=== PATIENT | male | born 1985 | race Caucasian/White ===

== ENCOUNTER 2017-01-30 12:35 | Inpatient (IN) | payer OTHER ==
[~2017-01-30] VITALS: Ht 177.8 cm; Wt 68.0 kg
[2017-01-30 12:36] VITALS: BP 116/69
--- NOTE | 2017-01-30 12:44 | NUR ---
31/M raffi from an urgent care, accompanied by Yuliya CONDON. Per EMS, patient walked into urgent care and told the staff that he wanted to kill himself. Pt arrived to ED calm and cooperative. Pt placed on a 5150 hold by Yuliya CONDON for suicidal ideation. Pt states he has a plan to walk in front of car. Pt states having previous suicidal attempts like walking into traffic. Pt also c/o chest pain. Pt states "My heart feels like it's breaking." Pt states he was involved in an argument today with his girlfriend that triggered him. Patient is AOX4, clear speech. Calm and cooperative. Denies homicidal tendencies. Pt admits to being on a 5150 in the past. All clothing removed and placed into a gown. All belongings placed in a belongings bag, and set aside to have security inspect them. Non slip socks provided. Pt placed on youth nutritional monitor, pulse oximetry and blood pressure monitoring. VSS. All needs addressed. Pt verbalizes understanding of situation. All questions answered. Security called to bedside for belongings inspection.
--- NOTE | 2017-01-30 12:52 | NUR ---
Lab at bedside for blood draw and security at bedside inspecting patient's belongings.
[2017-01-30 12:57] LABS: HEMATOCRIT 45.2 % (36-52); HEMOGLOBIN 15.1 g/dL (12.0-18.0); MEAN CORPUSCULAR HEMOGLOBIN 28 pg (27-31); MEAN CORPUSCULAR HGB CONC 33 g/dL (33-37); MEAN CORPUSCULAR VOLUME 83 fL (80-94); PLATELET COUNT (AUTO) 441 K/uL (140-450); RED BLOOD CELL COUNT(AUTO) 5.45 MIL/uL (4.20-6.10); RED CELL DISTRIBUTION WIDTH 13.6 % (11.6-13.7); WHITE BLOOD COUNT (AUTO) 13.8 K/uL (4.8-10.8)
--- NOTE | 2017-01-30 13:03 | NUR ---
UA collected and sent to lab. Warm blanket provided. Lunch offered. Pt states "I'll wait." All needs addressed.
[2017-01-30 13:13] LABS: ALANINE AMINOTRANSFERASE 24 U/L (16-63); ALBUMIN 4.2 g/dL (3.4-5.0); ALKALINE PHOSPHATASE 77 U/L (46-116); ANION GAP 17.3 (8-16); ASPARTATE AMINOTRANSFERASE 28 U/L (15-37); BAND % (MANUAL) 5 % (0-8); CALCIUM 8.3 mg/dL (8.5-10.1); CARBON DIOXIDE 23.1 mmol/L (21-32); CHLORIDE 91 mmol/L (98-107); CREATININE 1.5 mg/dL (0.7-1.3); GFR ARICAN-AMERICAN 70 mL/min (>90); GFR NON ARICAN-AMERICAN 58 mL/min (>90); GLUCOSE 89 mg/dL (74-106); LYMPHOCYTES % (MANUAL) 17 % (20-46); MONOCYTES % (MANUAL) 5 % (5-12); NEUTROPHILS % (MANUAL) 73 (43-65); PLATELET ESTIMATE ADEQUATE; SODIUM SERUM 129 mmol/L (136-145); TOTAL BILIRUBIN 2.1 mg/dL (0.0-1.0); TOTAL PROTEIN, SERUM 7.1 g/dL (6.4-8.2); UREA NITROGEN, BLOOD 21 mg/dL (7-18)
[2017-01-30 13:15] LABS: ACETAMINOPHEN < 0.5 ug/ml (10-30); ALCOHOL, BLOOD < 3 mg/dL (<3); POTASSIUM 2.4 mmol/L (3.5-5.1); SALICYLATE < 2.8 mg/dL (2.8-20.0)
[2017-01-30] MEDS ORDERED: POTASSIUM CHLORIDE 10 MEQ TABER PO ONE (13:25)
[2017-01-30 13:40] LABS: APPEARANCE,URINE HAZY (CLEAR); BILIRUBIN,URINE 2+ (NEGATIVE); BLOOD, URINE NEGATIVE (NEGATIVE); COLOR,URINE YELLOW (YELLOW); LEUKOCYTE ESTERASE ,URINE NEGATIVE (NEGATIVE); NITRITE, URINE NEGATIVE (NEGATIVE); PROTEIN,URINE 1+ (NEGATIVE); UGLUCOSE NEGATIVE (NEGATIVE)
--- NOTE | 2017-01-30 13:48 | NUR ---
Patient being evaluated by Dr. Fonseca at bedside.
[2017-01-30 13:49] LABS: AMPHETAMINE, URINE POS. ng/ml (NEG <=1000); BARBITURATE, URINE NEG. ng/ml (NEG <=200); BENZODIAZEPINE, URINE NEG. ng/mL (NEG <=200); CANNABINOID, URINE POS. ng/mL (NEG <=50); COCAINE, URINE NEG. ng/mL (NEG <=300); OPIATE, URINE NEG. ng/mL (NEG <=2000); PHENCYCLIDINE SCREEN,URINE NEG. ng/mL (NEG <=25)
[2017-01-30 14:00] LABS: RBC,URINE NONE SEEN /HPF (0-5); WBC,URINE 0-5 (RARE) /HPF (0-5)
[2017-01-30 14:01] LABS: BACTERIA,URINE FEW /HPF (None Seen); SQUAMOUS EPITHELIAL CELL,UR None Seen /LPF (0-3 (FEW)); URINE AMORPHOUS URATE 2+ /HPF (None Seen)
--- NOTE | 2017-01-30 14:04 | NUR ---
Pt resting comfortably at this time. Calm and cooperative. VSS. EMT at bedside as sitter.
--- NOTE | 2017-01-30 14:45 | NUR ---
Food tray provided to bedside. Pt is resting comfortably at this time. Crystal from [facility] at bedside as a sitter. Pt is calm and relaxed. VSS.
--- NOTE | 2017-01-30 15:46 | NUR ---
Patient appears to be resting comfortably in bed. Sitter at bedside. VSS. No distress noted.
[2017-01-30] MEDS ORDERED: ONDANSETRON 4 MG/2 ML VIAL IVP PRN (15:50)
[2017-01-30] MEDS ORDERED: ACETAMINOPHEN 325 MG TAB PO PRN (15:50)
[2017-01-30] MEDS ORDERED: LORazepam 2 MG/ML VIAL IVP PRN (15:50)
[2017-01-30 16:00] VITALS: BP 117/57
--- NOTE | 2017-01-30 16:00 | NUR ---
RECEIVED PT ON UNIT VIA [employer], PT IS A/OX4, AMBULATORY, PT HAS RIGHT HAND ABRASION, IV IS ON THE LEFT AC, PATENT, INTACT, FLUSHING WELL, NO S/S OF RESPIRATORY DISTRESS OR DISCOMFORT NOTED, ORIENTED PT TO ROOM, DISCUSSED PLAN OF CARE WITH PT, PT VERBALIZED UNDERSTANDING, SAFETY/FALL PRECAUTIONS ARE IN PLACE, 1:1 SITTER IS AT BEDSIDE (COLT), CALL LIGHT WITHIN REACH WILL CONTINUE TO MONITOR.
--- NOTE | 2017-01-30 16:00 | NUR ---
Patient eating lunch at this time. Sitter at bedside.
--- NOTE | 2017-01-30 16:03 | NUR ---
No nurse available for report at this time.
--- NOTE | 2017-01-30 16:12 | NUR ---
Patient will be admitted to care of Dr. Martins. Admited to M/S. Will go to room 124-B. Belongings list completed. Report to Malia PANG.
--- NOTE | 2017-01-30 18:27 | NUR ---
PT IS RESTING IN BED, WATCHING TV, CALL LIGHT WITHIN REACH, 1:1SITTER AT BEDSIDE.
--- NOTE | 2017-01-30 19:30 | NUR ---
PT ENDORSED TO BIRD KNIGHT. FOR CONTINUITY OF CARE, PT STABLE AT THIS TIME, 1:1 SITTER IS AT BEDSIDE (COLT).
--- NOTE | 2017-01-30 19:31 | NUR ---
RECEIVED REPORT FROM AM NURSE. PT SEEN ON BED WATCHING TV, AOX4. AMBULATORY. IV ON THE L AC 20 G, SALINE LOCK, PATENT AND INTACT. NO S/S OF DISTRESS. NO COMPLAINTS OF PAIN. DISCUSSED PLAN OF CARE WITH PATIENT, VERBALIZED UNDERSTANDING. WITH AN 1:1 SITTER. SAFETY PRECAUTIONS IN PLACE. CALL LIGHT WITHIN REACH. WILL CONTINUE TO MONITOR.
--- NOTE | 2017-01-30 19:35 | NUR ---
RECEIVED PT IN STABLE CONDITION FROM AM NURSE. AWAKE,ALERT AND ORIENTED X4. MED SURG PT. WITH 1:1 SITTER DUE TO SUICIDAL IDEATION. HL ON THE LT AC #20. CLEAR AND PATENT. PLAN OF CARE DISCUSSED AND VERBALIZED UNDERSTANDING. BED ON LOW POSITION,CALL LIGHT PLACED WITHIN EASY REACH. WILL CONTINUE TO MONITOR PT FOR SAFETY DURING THE SHIFT.
--- NOTE | 2017-01-30 20:10 | NUR ---
DR. GOTTLIEB HERE AND SEEN PT. HE SAID CAN DISCONTINUE 1:1 SITTER FOR PT DOESN'T MEET 5150 CRITERIA.
--- NOTE | 2017-01-30 21:00 | NUR ---
PT AWAKE. HAD SOME CRACKERS AND JUICE. TOLERATED WELL.
--- NOTE | 2017-01-30 22:16 | NUR ---
PAGED DR. GALDAMEZ TO MAKE AWARE ABOUT DR. GOTTLIEB ALREADY SEEN AND SAID PT DOESN'T MEET THE CRITERIA FOR 5150 HOLD AND TO DISCONTINUE THE 1:[address] CHASE OPERATOR VACUUM , CALLED BACK AND MADE AWARE OF WHAT DR. GOTTLIEB SAID AND SHE SAID OK AND JUST HAVE DR. GALDAMEZ MADE AWARE ALSO IN AM.
[2017-01-31] VITALS: BP 102/63
--- NOTE | 2017-01-31 00:10 | NUR ---
AWAKE. C/O HEADACHE. VITAL SIGNS TAKEN AND STABLE. TYLENOL 650 PO GIVEN ORDERED.
--- NOTE | 2017-01-31 01:10 | NUR ---
MADE ROUNDS. PT IS ASLEEP. NO MORE S/S OF ANY PAIN NOTED.
--- NOTE | 2017-01-31 03:04 | NUR ---
SAW PT SLEEPING. NO S/S OF DISTRESS. WILL CONTINUE TO MONITOR. CALL LIGHT WITHIN REACH. SAFETY CHECKS IN PLACE.
[2017-01-31 06:04] LABS: HEMATOCRIT 43.7 % (36-52); HEMOGLOBIN 14.6 g/dL (12.0-18.0); MEAN CORPUSCULAR HEMOGLOBIN 28 pg (27-31); MEAN CORPUSCULAR HGB CONC 33 g/dL (33-37); MEAN CORPUSCULAR VOLUME 84 fL (80-94); PLATELET COUNT (AUTO) 373 K/uL (140-450); RED BLOOD CELL COUNT(AUTO) 5.19 MIL/uL (4.20-6.10); RED CELL DISTRIBUTION WIDTH 13.5 % (11.6-13.7)
[2017-01-31 06:16] LABS: WHITE BLOOD COUNT (AUTO) 6.7 K/uL (4.8-10.8)
[2017-01-31 06:44] LABS: ALBUMIN 3.7 g/dL (3.4-5.0); ANION GAP 12.4 (8-16); CALCIUM 8.5 mg/dL (8.5-10.1); CARBON DIOXIDE 30.2 mmol/L (21-32); CREATININE 1.1 mg/dL (0.7-1.3); TOTAL BILIRUBIN 1.9 mg/dL (0.0-1.0); TOTAL PROTEIN, SERUM 6.5 g/dL (6.4-8.2)
[2017-01-31 06:46] LABS: POTASSIUM 2.6 mmol/L (3.5-5.1)
--- NOTE | 2017-01-31 07:15 | NUR ---
ENDORSED TO AM SHIFT NURSE FOR CONTINUITY OF CARE. IN STABLE CONDITION.
--- NOTE | 2017-01-31 07:19 | NUR ---
DR. GALDAMEZ WAS PAGED X2 . THIS TIME CALLED BACK AND MADE HAGER ABOUT K LEVEL OF 2.6 AND GAVE ORDER. ENDORSED TO AM NURSE.
--- NOTE | 2017-01-31 07:25 | NUR ---
REPORT RECEIVED FROM TELEVISION SPECIALIST, PT RESTING WITH EYES CLOSED, RESP EVEN UNLABORED ON ROOM AIR IN NAD, SKIN WARM DRY COLOR WNL, PT AROUSES EASILY BY VOICE, DENIES PAIN OR DISCOMFORT, DENIES ANY IMMEDIATE NEEDS, PLAN OF CARE DISCUSSED, CALL DORSEY WITHIN REACH, SIDE RAILS UP, BED LOCKED IN LOW POSITION, WILL CONTINUE TO MONITOR.
[2017-01-31 07:32] LABS: BASOPHILS % (MANUAL) 1 % (0-2); EOSINOPHILS % (MANUAL) 4 % (0-4); LYMPHOCYTES % (MANUAL) 58 % (20-46); MONOCYTES % (MANUAL) 3 % (5-12); NEUTROPHILS % (MANUAL) 34 (43-65)
[2017-01-31 08:04] VITALS: BP 121/55
[2017-01-31] MEDS: POTASSIUM CHLORIDE 10 MEQ TABER PO SCH ×2 (08:19→12:04)
--- NOTE | 2017-01-31 09:05 | NUR ---
PT C/O MCWILLIAMS 04/30, OFFERED TYLENOL BUT REFUSES, PT REQUESTS "SOMETHING STRONGER FOR PAIN", DR GALDAMEZ NOTIFIED OF PT'S REQUEST, NO NEW ORDER RECEIVED, PT STILL REFUSES TYLENOL. PT RETURNED BACK TO SLEEP , RESP EVEN UNLABORED, APPEARS COMFORTABLE IN NAD. WILL CONTINUE TO MONITOR.
--- NOTE | 2017-01-31 09:22 | NUR ---
PATIENT HAS BEEN SCREENED AND CATEGORIZED LOW NUTRITION RISK. PATIENT WILL BE SEEN WITHIN 7 DAYS OF ADMISSION. 02/06/[address]
--- NOTE | 2017-01-31 10:45 | NUR ---
CM NOTE INITIAL REVIEW FAXED TO [facility] / FAX#[phone], ATTN: PAT #[phone] [id number]
--- NOTE | 2017-01-31 11:40 | NUR ---
SPOKE WITH PATIENT'S SISTER. INFORMED HER OF PT'S DISCHARGE. SHE STATES THE MOM AND UNCLE WOULD BE COMING TO SOCIAL STUDIES TEACHER SON.
--- NOTE | 2017-01-31 12:44 | NUR ---
pt sitting up eating lunch, PT AA SPEAKING CLEARLY IN GOOD MOOD, DENIES PAIN OR DISCOMFORT, AWAITING FAMILY FOR DC HOME, PT AWARE OF PLAN. IV DC'D CATH TIP INTACT, BLEEDING CONTROLLED, PT DIPTI WELL.
[2017-01-31 14:30] VITALS: BP 128/72
--- NOTE | 2017-01-31 14:30 | NUR ---
CALLED MOTHER ON THE PHONE, MOTHER TO SHANKER OUT PT IN 10-20MIN.
--- NOTE | 2017-01-31 14:51 | NUR ---
DC INSTRUCTION GIVEN AND EXPLAINED TO MOTHER AND PT BY BIRD HEWITT, THEY VERBALIZED FULL UNDERSTANDING OF DC INSTRUCTION, PT UP WALKING WITH STEADY GAIT, DC HOME NOW WITH MOTHER.
== END 2017-01-31 14:50 | disposition home or self-care (01) | DRG 750 ==
LOC: MED 12:35 → MTU 15:51
PROVIDERS: ADMIT Hospitalist; ATTEND Hospitalist
DX: F20.9 Schizophrenia, unspecified (principal); R45.851 Suicidal ideations; F17.200 Nicotine dependence, unspecified, uncomplicated; Z88.6 Allergy status to analgesic agent
CPT/HCPCS: 36415; 80053; 80305; 81001; 85025; 87081; 99285; G0480; G0482

== ENCOUNTER 2017-03-03 10:55 | Inpatient (IN) | payer OTHER ==
[~2017-03-03] VITALS: Ht 175.3 cm; Wt 52.6 kg
[2017-03-03 11:07] VITALS: BP 113/55
--- NOTE | 2017-03-03 11:15 | NUR ---
Patient ambulated to bed 7. RN evaluating patient at bedside.
[2017-03-03] MEDS ORDERED: NACL 0.9% 1,000 ML IV ONE (11:19)
--- NOTE | 2017-03-03 11:20 | NUR ---
an pd weir by bedside
--- NOTE | 2017-03-03 11:20 | NUR ---
[place] PD evaluating patient at bedside.
--- NOTE | 2017-03-03 11:30 | NUR ---
PATIENT PLACE ON 5150 BY FILIBERTO CONDON DUE SUICIDIAL IDEATION; PATIENT STATES HE HAS HISTORY OF DEPRESSION AND HAS BEEN FEELING "DOWN AND OUT TO THE WORLD"; PATIENT DENIES ANY RECENT EVENT TO CAUSED HIM TO FEEL LIKE THIS; PATIENT STATES HE WANTS TO KILL HIMSELF BY STABBING HIMSELF IN THE NECK WITH A KNIFE; MOTHER OF PATIENT BY BEDSIDE; SECUTIRY BY BEDSIDE; BELONGINGS REMOVED AND PATIENT PLACED IN GOWN; PATIENT IS CALM AND WITHDRAWN; DENIES N/V/D; SKIN IS PINK/WARM/DRY; AAOX4 WITH EVEN AND STEADY GAIT; LUNGS CLEAR BL; HR EVEN AND REGULAR; PT DENIES ANY FEVER, CP, SOB, OR COUGH AT THIS TIME; PATIENT STATES PAIN OF 0/10 AT THIS TIME; VSS; PATIENT POSITIONED FOR COMFORT; HOB ELEVATED; BEDRAILS UP X2; BED DOWN. ER MD MADE AWARE OF PT STATUS; SUICIDIAL PRECAUTIONS IN PLACE.
[2017-03-03 11:37] LABS: BASOPHILS # (AUTO) 0.3 K/uL (0.00-0.22); BASOPHILS % (AUTO) 4.8 % (0.0-2.0); EOSINOPHILS # (AUTO) 0.1 K/uL (0-0.4); EOSINOPHILS % (AUTO) 1.3 % (0.0-4.0); HEMOGLOBIN 16.1 g/dL (12.0-18.0); LYMPHOCYTES # (AUTO) 1.4 K/uL (2.0-11.5); LYMPHOCYTES % (AUTO) 26.4 % (20.5-51.1); MEAN CORPUSCULAR HEMOGLOBIN 28 pg (27-31); MEAN CORPUSCULAR HGB CONC 33 g/dL (33-37); MEAN CORPUSCULAR VOLUME 85 fL (80-94); MONOCYTES # (AUTO) 0.2 K/uL (0.8-1.0); MONOCYTES % (AUTO) 3.5 % (1.7-9.3); NEUTROPHILS # (AUTO) 3.4 K/uL (1.8-7.7); PLATELET COUNT (AUTO) 598 K/uL (140-450); RED BLOOD CELL COUNT(AUTO) 5.76 MIL/uL (4.20-6.10); RED CELL DISTRIBUTION WIDTH 14.5 % (11.6-13.7)
[2017-03-03 11:39] LABS: APPEARANCE,URINE SL CLOUDY (CLEAR); BILIRUBIN,URINE 1+ (NEGATIVE); BLOOD, URINE NEGATIVE (NEGATIVE); COLOR,URINE YELLOW (YELLOW); LEUKOCYTE ESTERASE ,URINE NEGATIVE (NEGATIVE); NITRITE, URINE NEGATIVE (NEGATIVE); PH,URINE 5.5 (5.0-9.0); PROTEIN,URINE NEGATIVE (NEGATIVE); UGLUCOSE NEGATIVE (NEGATIVE); UROBILINOGEN,URINE 0.2 EU/dL (0.2 - 1)
[2017-03-03 11:46] LABS: AMPHETAMINE, URINE POS. ng/ml (NEG <=1000); BARBITURATE, URINE NEG. ng/ml (NEG <=200); BENZODIAZEPINE, URINE NEG. ng/mL (NEG <=200); CANNABINOID, URINE NEG. ng/mL (NEG <=50); COCAINE, URINE NEG. ng/mL (NEG <=300); OPIATE, URINE NEG. ng/mL (NEG <=2000); PHENCYCLIDINE SCREEN,URINE NEG. ng/mL (NEG <=25)
[2017-03-03 11:51] LABS: INR 1.1 (0.8-1.2); PARTIAL THROMBOPLASTIN TIME 29.1 secs (22-35.6)
[2017-03-03 11:52] LABS: ICTOTEST POSITIVE (NEGATIVE)
[2017-03-03 11:53] LABS: ALANINE AMINOTRANSFERASE 25 U/L (16-63); ALBUMIN 4.7 g/dL (3.4-5.0); ALCOHOL, BLOOD < 3 mg/dL (<3); ALKALINE PHOSPHATASE 94 U/L (46-116); ANION GAP 10.8 (8-16); ASPARTATE AMINOTRANSFERASE 12 U/L (15-37); BILIRUBIN,DIRECT 0.3 mg/dL (0.0-0.3); CALCIUM 9.3 mg/dL (8.5-10.1); CARBON DIOXIDE 30.1 mmol/L (21-32); CHLORIDE 98 mmol/L (98-107); CREATININE 1.1 mg/dL (0.7-1.3); GFR ARICAN-AMERICAN 100 mL/min (>90); GFR NON ARICAN-AMERICAN 83 mL/min (>90); GLUCOSE 107 mg/dL (74-106); SODIUM SERUM 136 mmol/L (136-145); TOTAL BILIRUBIN 1.5 mg/dL (0.0-1.0); TOTAL PROTEIN, SERUM 7.8 g/dL (6.4-8.2); UREA NITROGEN, BLOOD 17 mg/dL (7-18)
[2017-03-03 11:54] LABS: POTASSIUM 2.9 mmol/L (3.5-5.1)
[2017-03-03 11:56] LABS: WHITE BLOOD COUNT (AUTO) 5.4 K/uL (4.8-10.8)
[2017-03-03] MEDS ORDERED: POTASSIUM CHL 40 MEQ/ D5-1/2NS 1,000 ML IV ONE (12:00)
--- NOTE | 2017-03-03 12:21 | NUR ---
Patient taken to CT scan via gurney by [place].
--- NOTE | 2017-03-03 12:48 | NUR ---
Patient appears to be resting comfortably in bed. Vital Signs within normal limits. Respirations even and unlabored. Suicidial precautions in place.
--- NOTE | 2017-03-03 13:30 | NUR ---
Patient appears to be resting comfortably in bed. Vital Signs within normal limits. Respirations even and unlabored; SUICIDIAL PRECAUTSION IN PLACE
--- NOTE | 2017-03-03 14:45 | NUR ---
Pt sitting up, eating lunch. Calm and cooperative.
[2017-03-03] MEDS ORDERED: LORazepam 2 MG/ML VIAL IVP PRN (14:55)
[2017-03-03] MEDS ORDERED: ACETAMINOPHEN 325 MG TAB PO PRN (14:55)
[2017-03-03] MEDS ORDERED: MORPHINE SULFATE 2 MG/ML SYR IVP PRN (14:55)
[2017-03-03] MEDS ORDERED: ONDANSETRON 4 MG/2 ML VIAL IVP PRN (14:55)
--- NOTE | 2017-03-03 14:59 | NUR ---
Dr. Joseph at bedside.
--- NOTE | 2017-03-03 15:05 | NUR ---
Notified Dr. Doty's group of requested psych consult.
--- NOTE | 2017-03-03 15:30 | NUR ---
Patient appears to be resting comfortably in bed and resting with eyes closed. Vital Signs within normal limits. Respirations even and unlabored. Suicidial precautions in place.
--- NOTE | 2017-03-03 16:01 | NUR ---
ATTEMPTED TO CALL FOR REPORT; MS HALL SAID RN WILL CALL BACK AND MS RN WITH PATIENT; ADMITTING ROOM ISN'T CLEAN
--- NOTE | 2017-03-03 16:30 | NUR ---
PATIENT RESTING WITH EYES CLOSED; IV MEDICATION INFUSING WITHOUT DIFFICULTLY; VSS; RR ARE EVEN AND UNLABORED; NAD; SUIDICIAL PRECAUTIONS IN PLACE
--- NOTE | 2017-03-03 16:34 | NUR ---
GAVE REPORT TO TRINY PANG; ROOM 123B IS NOT READY; ACCORDING TO MS HALL RM 123B WON'T BE READY UNTIL SHIFT CHANGE
--- NOTE | 2017-03-03 17:20 | NUR ---
PT KEPT CLEAN. DRY AND COMFORTABLE, NEEDS ATTENDED, ENDORSED TO NEXT SHIFT ON STABLE CONDITION FOR CONTINUITY OF CARE. Addendum: 03/03/17 at 1938 by Dilma Mehta RN PT KEPT CLEAN. DRY AND COMFORTABLE, NEEDS ATTENDED, ENDORSED TO NEXT SHIFT ON STABLE CONDITION FOR CONTINUITY OF CARE AT 1920.
--- NOTE | 2017-03-03 18:33 | NUR ---
RECEIVED PT FROM ER. AWAKE, ALERT, ORIENTEDX4. NO SOB NOTED. DENIES ANY PAIN OR DISCOMFORT AT THIS TIME. POSITIVE BOWEL SOUNDS NOTED ON FOUR QUADRANTS. PT AMBULATORY. SAFETY PRECAUTION IN PLACE. ON 5150, 1:1 SITTER. CALL LIGHT WITHIN REACH. NO SUICIDAL IDEATION NOTED AT THIS TIME.
[2017-03-03 18:36] VITALS: BP 98/57
--- NOTE | 2017-03-03 19:21 | NUR ---
RECEIVED REPORT FROM AM NURSE. PT IS AOX4, ABLE TO VERBALIZE NEEDS. NO S/S OF DISTRESS, NO COMPLAINTS OF PAIN AT THIS TIME. INITAL ASSESSMENT DONE. WITH AN IV TO THE RIGHT AC 20 G, WITH POTASSIUM CHLORIDE RUNNING, PATENT AND INTACT. IS ABLE TO AMBULATE. WILL CONTINUE TO MONITOR. WITH A 1:1 SITTER. ALL NEEDS ATTENDED. CALL LIGHT WITHIN REACH. SAFETY CHECKS IN PLACE.
--- NOTE | 2017-03-03 19:30 | NUR ---
DR MICHEL CAME TO SEE THE PATIENT AND STATED THAT THE PATIENT DOES NOT MEET THE 5150 CRITERIA AT THIS TIME. WITH ORDERS OF A SOCIAL SERVICE CONSULT FOR MENTAL HEALTH AND SUBSTANCE ABUSE TREATMENT. NOTED. ADMISSION DONE. WILL CONTINUE TO MONITOR FOR ANY CHANGES.
--- NOTE | 2017-03-03 21:10 | NUR ---
PT COMPLAINED OF RIGHT HAND PAIN, GAVE TYLENOL. WILL CONTINUE TO MONITOR FOR ANY CHANGES. ALL NEEDS ATTENDED. CALL LIGHT WITHIN REACH. SAFETY CHECKS IN PLACE.
[2017-03-04] VITALS: BP 95/56
--- NOTE | 2017-03-04 | NUR ---
VITAL SIGNS STABLE. NO S/S OF DISTRESS. NO COMPLAINTS OF PAIN. WILL CONTINUE TO MONITOR. CALL LIGHT WITHIN REACH. SAFETY CHECKS IN PLACE.
--- NOTE | 2017-03-04 02:23 | NUR ---
MADE ROUNDS, PT ASLEEP. NO S/S OF DISTRESS. CALL LIGHT WITHIN REACH. SAFETY CHECKS IN PLACE. WILL CONTINUE TO MONITOR.
--- NOTE | 2017-03-04 04:46 | NUR ---
MADE ROUNDS, PT ASLEEP. NO S/S OF DISTRESS. WILL CONTINUE TO MONITOR. ALL NEEDS ATTENDED. CALL LIGHT WITHIN REACH. SAFETY CHECKS IN PLACE.
--- NOTE | 2017-03-04 07:20 | NUR ---
ENDORSED TO AM SHIFT NURSE FOR CONTINUITY OF CARE, IN STABLE CONDITION.
--- NOTE | 2017-03-04 07:22 | NUR ---
REPORT RECEIVED FROM NIGHT NURSE, PT A&OX4, IV PATENT, NO COMPLAINTS OF PAIN, SAFETY MEASURES ENSURED, WILL MONITOR.
[2017-03-04 08:00] VITALS: BP 114/66
--- NOTE | 2017-03-04 08:09 | NUR ---
PATIENT HAS BEEN SCREENED AND CATEGORIZED HIGH NUTRITION RISK. PATIENT WILL BE SEEN WITHIN 1-2 DAYS OF ADMISSION. 03/04/17- NANY V[address]OS [address]
[2017-03-04] MEDS ORDERED: ENOXAPARIN 40 MG/0.4 ML SYR SUBQ SCH (09:00)
[2017-03-04 09:10] LABS: BASOPHILS % (AUTO) 5.6 % (0.0-2.0)
--- NOTE | 2017-03-04 09:16 | NUR ---
MORNING MEDS GIVEN WITH TEACHING, PT VERBALIZED UNDERSTANDING, NO COMPLAINTS OF DISCOMFORT, SAFETY MEASURES ENSURED, WILL MONITOR.
[2017-03-04 09:37] LABS: BASOPHILS # (AUTO) 0.3 K/uL (0.00-0.22); EOSINOPHILS # (AUTO) 0.2 K/uL (0-0.4); EOSINOPHILS % (AUTO) 3.6 % (0.0-4.0); HEMATOCRIT 39.8 % (36-52); HEMOGLOBIN 13.4 g/dL (12.0-18.0); LYMPHOCYTES # (AUTO) 1.4 K/uL (2.0-11.5); LYMPHOCYTES % (AUTO) 28.3 % (20.5-51.1); MEAN CORPUSCULAR HEMOGLOBIN 29 pg (27-31); MEAN CORPUSCULAR HGB CONC 34 g/dL (33-37); MEAN CORPUSCULAR VOLUME 85 fL (80-94); MONOCYTES # (AUTO) 0.3 K/uL (0.8-1.0); MONOCYTES % (AUTO) 6.8 % (1.7-9.3); NEUTROPHILS # (AUTO) 2.8 K/uL (1.8-7.7); NEUTROPHILS % (AUTO) 55.7 % (42.2-75.2); PLATELET COUNT (AUTO) 458 K/uL (140-450); RED BLOOD CELL COUNT(AUTO) 4.67 MIL/uL (4.20-6.10); RED CELL DISTRIBUTION WIDTH 15.3 % (11.6-13.7)
[2017-03-04 10:04] LABS: ANION GAP 8.1 (8-16); CALCIUM 8.2 mg/dL (8.5-10.1); CARBON DIOXIDE 29.4 mmol/L (21-32); POTASSIUM 3.5 mmol/L (3.5-5.1)
--- NOTE | 2017-03-04 11:16 | NUR ---
03/04/17 RD INITIAL ASSESSMENT COMPLETED PLEASE REFER TO NUTRITION ASSESSMENT UNDER CARE ACTIVITY FOR ESTIMATED NUTRITIONAL NEEDS. 1. CONTINUE REGULAR DIET 2. RD TO FOLLOW-UP 3-5 DAYS, MODERATE RISK NANY VIVEROS RD
--- NOTE | 2017-03-04 11:16 | NUR ---
PT RESTING IN BED, NO COMPLAINTS OF PAIN OR DISCOMFORT, NO S/S OF DISTRESS, SAFETY MEASURES ENSURED, WILL MONITOR.
--- NOTE | 2017-03-04 11:22 | NUR ---
SS NOTE: I SPOKE WITH PT BEDSIDE AND PROVIDED HIM WITH SUBSTANCE ABUSE RESOURCES AND MENTAL HEALTH RESOURCES.
--- NOTE | 2017-03-04 14:35 | NUR ---
FAXED INITIAL REVIEW TO [facility] [phone] PHONE [phone] [facility] [id number]
[2017-03-04 15:59] VITALS: BP 114/66
[2017-03-04 16:38] VITALS: BP 114/66
--- NOTE | 2017-03-04 17:07 | NUR ---
PT CLEARED FOR DISCHARGE. DISCHARGE INSTRUCTIONS PROVIDED. PT VERBALIZED UNDERSTANDING. IV TAKEN OUT. TIP INTACT. PT DENIES ANY SUICIDAL IDEATION AT THIS TIME. FAMILY HERE TO UTILITIES ESTIMATOR AND DRAFTER PT. NO S/S OF ACUTE DISTRESS. PT TAKEN OFF UNIT.
== END 2017-03-04 17:03 | disposition home or self-care (01) | DRG 751 ==
LOC: MED 10:55 → MMU 15:34 → MTU 17:38
PROVIDERS: ADMIT Hospitalist; ATTEND Hospitalist
DX: F33.2 Major depressive disorder, recurrent severe without psychotic features (principal); R45.851 Suicidal ideations; F15.20 Other stimulant dependence, uncomplicated; Z88.6 Allergy status to analgesic agent; Z87.891 Personal history of nicotine dependence
CPT/HCPCS: 36415; 70450; 80048; 80053; 80076; 80305; 81003; 85025; 85610; 85730; 87081; 93005; 96365; 96366; 99285; G0482; J1650; J7030

== ENCOUNTER 2017-03-19 17:52 | Emergency (ER) | payer OTHER ==
[~2017-03-19] VITALS: Ht 175.3 cm; Wt 75.7 kg
[2017-03-19 19:05] VITALS: BP 132/83
[2017-03-19] MEDS ORDERED: NACL 0.9% 1,000 ML IV ONE (19:40)
[2017-03-19 19:55] LABS: EOSINOPHILS # (AUTO) 0.1 K/uL (0-0.4); LYMPHOCYTES # (AUTO) 0.9 K/uL (2.0-11.5)
[2017-03-19 20:01] LABS: BASOPHILS # (AUTO) 0.4 K/uL (0.00-0.22); BASOPHILS % (AUTO) 3.8 % (0.0-2.0); EOSINOPHILS % (AUTO) 0.9 % (0.0-4.0); HEMATOCRIT 48.4 % (36-52); HEMOGLOBIN 15.7 g/dL (12.0-18.0); LYMPHOCYTES % (AUTO) 9.8 % (20.5-51.1); MEAN CORPUSCULAR HEMOGLOBIN 28 pg (27-31); MEAN CORPUSCULAR HGB CONC 32 g/dL (33-37); MEAN CORPUSCULAR VOLUME 86 fL (80-94); MONOCYTES # (AUTO) 0.5 K/uL (0.8-1.0); MONOCYTES % (AUTO) 4.7 % (1.7-9.3); NEUTROPHILS # (AUTO) 7.7 K/uL (1.8-7.7); NEUTROPHILS % (AUTO) 80.8 % (42.2-75.2); PLATELET COUNT (AUTO) 458 K/uL (140-450); RED BLOOD CELL COUNT(AUTO) 5.65 MIL/uL (4.20-6.10); RED CELL DISTRIBUTION WIDTH 14.8 % (11.6-13.7); WHITE BLOOD COUNT (AUTO) 9.6 K/uL (4.8-10.8)
[2017-03-19 20:06] LABS: ANION GAP 19.3 (8-16); CARBON DIOXIDE 20.9 mmol/L (21-32); CREATININE 0.9 mg/dL (0.7-1.3); POTASSIUM 3.2 mmol/L (3.5-5.1)
[2017-03-19 20:12] LABS: ALBUMIN 4.4 g/dL (3.4-5.0); TOTAL BILIRUBIN 1.2 mg/dL (0.0-1.0)
[2017-03-19] MEDS ORDERED: POTASSIUM CHLORIDE 10 MEQ TABER PO ONE (20:15)
[2017-03-19 20:38] VITALS: BP 158/91
== END 2017-03-19 20:38 | disposition home or self-care (01) ==
LOC: MED 17:52
DX: F15.10 Other stimulant abuse, uncomplicated (principal); R03.0 Elevated blood-pressure reading, without diagnosis of hypertension; F17.210 Nicotine dependence, cigarettes, uncomplicated
CPT/HCPCS: 36415; 80053; 85025; 96360; 99284; G0480; G0482; J7030

== ENCOUNTER 2017-05-02 19:46 | Emergency (ER) | payer OTHER ==
[~2017-05-02] VITALS: Ht 165.1 cm; Wt 65.8 kg
--- NOTE | 2017-05-02 19:46 | NUR ---
PT BIBA BLS. TAKEN TO BED 7. [place] [employer] AT BEDSIDE.
[2017-05-02 19:48] VITALS: BP 119/70
--- NOTE | 2017-05-02 19:50 | NUR ---
PATIENT IS A 31 Y/O BIB [place] [facility] AND [facility] C/O ALTERED MENTAL STATUS. PER PD, PATIENT HAS A H/O METH USE AND WAS WALKING INTO TRAFFIC. PT THEN PROCEEDED TO HOLD ON TO UNCLE AND GRAB UMBRELLA. PD ALSO REPORTED H/O PSYCH ISSUES AND NONCOMPLIANT WITH MEDICATIONS. PT DENIES ANY PAIN, CP, SOB, N/V/D. PT AAOX4, RR EVEN/UNLABORED. PD CURRENTLY AT THE BEDSIDE, POSSIBLE 5150 CANDIDATE. PT REPOSITIONED FOR COMFORT, BED IN LOWEST POSITION. TIERA VALDEZ NOTIFIED. WILL CONTINUE TO MONITOR. Addendum: 05/02/17 at 2004 by [email or web address] PATIENT IS A 31 Y/O BIB [place] [facility] AND [facility] C/O ALTERED MENTAL STATUS. PER PD, PATIENT HAS A H/O METH USE AND WAS WALKING INTO TRAFFIC. PT THEN PROCEEDED TO HOLD ON TO UNCLE AND GRAB UMBRELLA. PD ALSO REPORTED H/O PSYCH ISSUES AND NONCOMPLIANT WITH MEDICATIONS. PT DENIES ANY PAIN, CP, SOB, N/V/D. PT AAOX2, RR EVEN/UNLABORED. PD CURRENTLY AT THE BEDSIDE, POSSIBLE 5150 CANDIDATE. PT REPOSITIONED FOR COMFORT, BED IN LOWEST POSITION. TIERA VALDEZ NOTIFIED. WILL CONTINUE TO MONITOR.
--- NOTE | 2017-05-02 20:00 | NUR ---
PATIENT RESTING AT THIS TIME. NO VISIBLE SIGNS OF DISTRESS.
--- NOTE | 2017-05-02 20:00 | NUR ---
PATIENT BROUGHT IN ON RESTRAINTS. CONTINUED RESTRAINTS PER DR. VALDEZ. ROM, CMS INTACT, NO VISIBLE SIGNS OF INJURY.
--- NOTE | 2017-05-02 20:12 | NUR ---
PATIENT WILL BE PLACED ON 5150 HOLD.
--- NOTE | 2017-05-02 20:15 | NUR ---
PATIENT BROUGHT IN ON RESTRAINTS. CONTINUED RESTRAINTS PER DR. VALDEZ. ROM, CMS INTACT, NO VISIBLE SIGNS OF INJURY.
--- NOTE | 2017-05-02 20:17 | NUR ---
Cal souza in [facility], [place] - 05/02/[address] Fonseca evaluating patient at bedside.
[2017-05-02 20:30] LABS: BASOPHILS # (AUTO) 0.4 K/uL (0.00-0.22); BASOPHILS % (AUTO) 2.7 % (0.0-2.0); EOSINOPHILS % (AUTO) 0.2 % (0.0-4.0); HEMATOCRIT 49.2 % (36-52); HEMOGLOBIN 15.7 g/dL (12.0-18.0); LYMPHOCYTES # (AUTO) 0.7 K/uL (2.0-11.5); LYMPHOCYTES % (AUTO) 4.8 % (20.5-51.1); MEAN CORPUSCULAR HEMOGLOBIN 28 pg (27-31); MEAN CORPUSCULAR HGB CONC 32 g/dL (33-37); MEAN CORPUSCULAR VOLUME 86 fL (80-94); MONOCYTES # (AUTO) 0.2 K/uL (0.8-1.0); MONOCYTES % (AUTO) 1.3 % (1.7-9.3); NEUTROPHILS # (AUTO) 14.2 K/uL (1.8-7.7); PLATELET COUNT (AUTO) 554 K/uL (140-450); RED CELL DISTRIBUTION WIDTH 13.4 % (11.6-13.7); WHITE BLOOD COUNT (AUTO) 15.5 K/uL (4.8-10.8)
--- NOTE | 2017-05-02 20:30 | NUR ---
CONTINUED RESTRAINTS PER DR. VALDEZ. ROM, CMS INTACT, NO VISIBLE SIGNS OF INJURY.
[2017-05-02 20:41] LABS: ANION GAP 16.2 (8-16); CARBON DIOXIDE 22.3 mmol/L (21-32); CHLORIDE 103 mmol/L (98-107); CREATININE 1.6 mg/dL (0.7-1.3); GFR ARICAN-AMERICAN 65 mL/min (>90); GLUCOSE 129 mg/dL (74-106); POTASSIUM 3.5 mmol/L (3.5-5.1); SODIUM SERUM 138 mmol/L (136-145); UREA NITROGEN, BLOOD 9 mg/dL (7-18)
--- NOTE | 2017-05-02 20:41 | NUR ---
PT PLACED ON 5150 HOLD BY FILIBERTO CONDON
--- NOTE | 2017-05-02 20:45 | NUR ---
CONTINUED RESTRAINTS PER DR. VALDEZ. ROM, CMS INTACT, NO VISIBLE SIGNS OF INJURY.
[2017-05-02 20:46] LABS: ALBUMIN 4.2 g/dL (3.4-5.0); ASPARTATE AMINOTRANSFERASE 14 U/L (15-37); TOTAL BILIRUBIN 0.6 mg/dL (0.0-1.0)
[2017-05-02 20:47] LABS: ACETAMINOPHEN < 0.5 ug/ml (10-30); SALICYLATE < 2.8 mg/dL (2.8-20.0)
--- NOTE | 2017-05-02 21:00 | NUR ---
PATIENT RESTING AT THIS TIME. NO VISIBLE SIGNS OF DISTRESS.
--- NOTE | 2017-05-02 21:00 | NUR ---
CONTINUED RESTRAINTS PER DR. VALDEZ. ROM, CMS INTACT, NO VISIBLE SIGNS OF INJURY.
--- NOTE | 2017-05-02 21:15 | NUR ---
CONTINUED RESTRAINTS PER DR. VALDEZ. ROM, CMS INTACT, NO VISIBLE SIGNS OF INJURY.
--- NOTE | 2017-05-02 21:30 | NUR ---
CONTINUED RESTRAINTS PER DR. VALDEZ. ROM, CMS INTACT, NO VISIBLE SIGNS OF INJURY.
--- NOTE | 2017-05-02 21:45 | NUR ---
CONTINUED RESTRAINTS PER DR. VALDEZ. ROM, CMS INTACT, NO VISIBLE SIGNS OF INJURY.
--- NOTE | 2017-05-02 22:00 | NUR ---
CONTINUED RESTRAINTS PER DR. VALDEZ. ROM, CMS INTACT, NO VISIBLE SIGNS OF INJURY.
--- NOTE | 2017-05-02 22:00 | NUR ---
PATIENT RESTING AT THIS TIME. NO VISIBLE SIGNS OF DISTRESS.
--- NOTE | 2017-05-02 22:12 | NUR ---
PERFORMED STRAIGHT CATH. 150 ML CLEAR YELLOW URINE. ACCOMPANIED BY LACEY PANG AND MARLENA EMT.
--- NOTE | 2017-05-02 22:15 | NUR ---
CONTINUED RESTRAINTS PER DR. VALDEZ. ROM, CMS INTACT, NO VISIBLE SIGNS OF INJURY.
--- NOTE | 2017-05-02 22:30 | NUR ---
CONTINUED RESTRAINTS PER DR. VALDEZ. ROM, CMS INTACT, NO VISIBLE SIGNS OF INJURY.
[2017-05-02 22:34] LABS: APPEARANCE,URINE SL CLOUDY (CLEAR); BILIRUBIN,URINE NEGATIVE (NEGATIVE); BLOOD, URINE TRACE-L (NEGATIVE); COLOR,URINE YELLOW (YELLOW); LEUKOCYTE ESTERASE ,URINE NEGATIVE (NEGATIVE); NITRITE, URINE NEGATIVE (NEGATIVE); PH,URINE 6.5 (5.0-9.0); UGLUCOSE NEGATIVE (NEGATIVE)
[2017-05-02 22:41] LABS: BARBITURATE, URINE NEG. ng/ml (NEG <=200); BENZODIAZEPINE, URINE NEG. ng/mL (NEG <=200); CANNABINOID, URINE NEG. ng/mL (NEG <=50); COCAINE, URINE NEG. ng/mL (NEG <=300); OPIATE, URINE NEG. ng/mL (NEG <=2000); PHENCYCLIDINE SCREEN,URINE NEG. ng/mL (NEG <=25)
--- NOTE | 2017-05-02 22:45 | NUR ---
CONTINUED RESTRAINTS PER DR. VALDEZ. ROM, CMS INTACT, NO VISIBLE SIGNS OF INJURY.
--- NOTE | 2017-05-02 22:54 | NUR ---
Dr. Fonseca evaluating patient at bedside.
--- NOTE | 2017-05-02 23:00 | NUR ---
PATIENT RESTING AT THIS TIME. NO VISIBLE SIGNS OF DISTRESS.
--- NOTE | 2017-05-02 23:00 | NUR ---
PER DR. VALDEZ, DISCONTINUED RESTRAINTS. NO VISIBLE SIGNS OF INJURY, FULL RANGE OF MOTION, CMS INTACT.
[2017-05-02 23:01] LABS: RBC,URINE 0-5 (RARE) /HPF (0-5); WBC,URINE 0-5 (RARE) /HPF (0-5)
[2017-05-02 23:02] LABS: URINE AMORPHOUS URATE 1+ /HPF (None Seen)
--- NOTE | 2017-05-03 | NUR ---
PATIENT RESTING AT THIS TIME. NO VISIBLE SIGNS OF DISTRESS.
--- NOTE | 2017-05-03 01:00 | NUR ---
PATIENT RESTING AT THIS TIME. NO VISIBLE SIGNS OF DISTRESS.
--- NOTE | 2017-05-03 01:24 | NUR ---
Patient to be transferred to [facility]. Is being transferred due to HIGHER LEVEL OF CARE. Receiving facility has accepting physician and available space. ER physician has signed transfer form. Patient or responsible republican has agreed to transfer and signed form. Patient belongings inventoried and will be sent with patient. Copy of nursing notes, lab reports, EKG, Physicians Orders and X-rays to be sent with patient. Report called to JOSH PANG at receiving facility. [facility] ambulance service has been called for transfer. ETA is 45MIN.
--- NOTE | 2017-05-03 02:00 | NUR ---
PATIENT RESTING AT THIS TIME. NO VISIBLE SIGNS OF DISTRESS.
[2017-05-03 02:44] VITALS: BP 118/87
--- NOTE | 2017-05-03 02:44 | NUR ---
[facility] [address] [address] - [facility] TRIMMER. HERE FOR PT TRANSFER
--- NOTE | 2017-05-03 02:45 | NUR ---
PT TAKEN BY [facility] TRANSPORT TO [facility] UNIT 1
== END 2017-05-03 02:45 | disposition designated cancer center or children's hospital (05) ==
LOC: MED 19:46
DX: F29 Unspecified psychosis not due to a substance or known physiological condition (principal); F12.10 Cannabis abuse, uncomplicated; Z88.6 Allergy status to analgesic agent
CPT/HCPCS: 36415; 80053; 80305; 81001; 85025; 93005; 99285; C1758; G0480; G0482

== ENCOUNTER 2018-09-12 20:29 | Emergency (ER) | payer OTHER ==
[~2018-09-12] VITALS: Ht 175.3 cm; Wt 68.0 kg
[2018-09-12 20:40] VITALS: BP 113/74
--- NOTE | 2018-09-12 21:09 | NUR ---
PT AMBULATED TO LOBBY, VSS
--- NOTE | 2018-09-12 22:00 | NUR ---
PT CALLED X 1 NO RESPONSE
--- NOTE | 2018-09-12 22:20 | NUR ---
PT CALLED X 1 NO RESPONSE
--- NOTE | 2018-09-12 22:40 | NUR ---
PT CALLED X 1 NO RESPONSE
--- NOTE | 2018-09-12 22:43 | NUR ---
PATIENT LEFT WITHOUT BEING SEEN BY DR. VALDEZ. NO FURTHER CARE PROVIDED FOR PATIENT.
== END 2018-09-12 22:00 | disposition left against medical advice (07) ==
LOC: MED 20:29
DX: T18.8XXA Foreign body in other parts of alimentary tract, initial encounter (principal); Z53.21 Procedure and treatment not carried out due to patient leaving prior to being seen by health care provider; X58.XXXA Exposure to other specified factors, initial encounter; Y93.89 Activity, other specified; Y92.89 Other specified places as the place of occurrence of the external cause; Y99.8 Other external cause status

== ENCOUNTER 2018-09-13 02:50 | Emergency (ER) | payer OTHER ==
[~2018-09-13] VITALS: Ht 175.3 cm; Wt 57.2 kg
[2018-09-13 02:55] VITALS: BP 133/87
--- NOTE | 2018-09-13 03:05 | NUR ---
PT AMBUALTED TO THE RESTROOM. U/A SAMPLE WAS DONE. TIERA BAEZ MADE AWARE Addendum: 09/13/18 at 0308 by [email or web address] PT AMBULATED TO THE RESTROOM. U/A SAMPLE WAS DONE. TIERA BAEZ MADE AWARE
--- NOTE | 2018-09-13 03:05 | NUR ---
PT AMBULATED TO ROOM #7.
--- NOTE | 2018-09-13 03:10 | NUR ---
33/M presents to ED with complaints to pain to right side of throat. Pt states he thinks he swallowed something that is now stuck in his throat. Pt states he noticed it this morning. Denies swallowing anything sharp intentionally. States "It just started hurting. I don't know." Pt rubbing the right side of his neck. No swelling or deformity noted. AOX4, speaking in full clear sentences. Lungs clear bilaterally. No drooling noted. Pt appears calm and relaxed. VSS. Pt denies SI or HI.
[2018-09-13] MEDS ORDERED: KETOROLAC 60 MG/2 ML VIAL IM ONE ×2 (03:15→03:29)
--- NOTE | 2018-09-13 03:19 | NUR ---
drying and winding supervisor called for Toradol. Toradol 60mg not available in ER pyxis. Waiting for med to administer.
--- NOTE | 2018-09-13 03:24 | NUR ---
Pt unsure of his allergy to ibuprofen. Pt states "That's what my mom said when I was little but I'm not even really sure if that's what it is." Dr. Fonseca made that patient is allergic to ibuprofen. Dr. Fonseca still ordered for patient to receive Toradol.
[2018-09-13 03:55] VITALS: BP 133/87
--- NOTE | 2018-09-13 03:55 | NUR ---
Patient discharged with v/s stable. Written and verbal after care instructions given and explained. Patient alert, oriented and verbalized understanding of instructions. Ambulatory with steady gait. All questions addressed prior to discharge. ID band removed. Patient advised to follow up with PMD. Rx of Tramadol 50mg given. Patient educated on indication of medication including possible reaction and side effects. Opportunity to ask questions provided and answered.
== END 2018-09-13 03:55 | disposition home or self-care (01) ==
LOC: MED 02:50
DX: J02.9 Acute pharyngitis, unspecified (principal); F17.200 Nicotine dependence, unspecified, uncomplicated; Z88.6 Allergy status to analgesic agent
CPT/HCPCS: 81002; 96372; 99283; J1885

== ENCOUNTER 2018-09-14 21:08 | Emergency (ER) | payer OTHER ==
[~2018-09-14] VITALS: Ht 175.3 cm; Wt 59.0 kg
[2018-09-14 21:21] VITALS: BP 149/90
--- NOTE | 2018-09-14 22:23 | NUR ---
PT TAKEN TO BED 3
--- NOTE | 2018-09-14 22:27 | NUR ---
PT TO ED WITH C/O R EYE SWELLING AND PAIN X 2 WEEKS. PT REPORTS BEING SEEN AT [facility] [place] AND GIVEN RX FOR ABX AND TAKING PRESCRIBED WITH NO RELIEF. DENIES DRAINGE AND VISION CHANGES TO EYE. PT PLACED INTO BED, PENDING MD BUTCHER. PMH--DENIES
[2018-09-14] MEDS ORDERED: FLUORESCEIN OPTH STRIP 0.6 MG OP ONE (22:50)
[2018-09-14] MEDS ORDERED: TETRACAINE HCL/PF 0.5% OPTH 4 ML BTL OP ONE (22:50)
[2018-09-14] MEDS ORDERED: CLINDAMYCIN 600 MG/4 ML VIAL IM ONE (23:35)
[2018-09-14 23:56] VITALS: BP 138/83
--- NOTE | 2018-09-14 23:56 | NUR ---
Patient discharged with v/s stable. Written and verbal after care instructions given and explained. Patient alert, oriented and verbalized understanding of instructions. Ambulatory with steady gait. All questions addressed prior to discharge. ID band removed. Patient advised to follow up with PMD. Rx of CLINDAMYCIN, NAPROSYN, TOBRAMYCIN DROPS given. Patient educated on indication of medication including possible reaction and side effects. Opportunity to ask questions provided and answered.
== END 2018-09-14 23:56 | disposition home or self-care (01) ==
LOC: MED 21:08
DX: L03.213 Periorbital cellulitis (principal)
CPT/HCPCS: 96372; 99283; J3490

== ENCOUNTER 2020-06-24 20:23 | Emergency (ER) | payer OTHER ==
[~2020-06-24] VITALS: Ht 175.3 cm; Wt 64.4 kg
[2020-06-24 20:23] VITALS: BP 162/90
--- NOTE | 2020-06-24 20:25 | NUR ---
18 G IV TO LT A/C INSERTED BY EMS PRIOR TO ER ARRIVAL. IV FLUSHED W/ 10 CC NS . IV PATENT , NO INFILTRATION , REDNESS, SWELLING AND PAIN NOTED AT THE IV SITE.
--- NOTE | 2020-06-24 20:25 | NUR ---
34 Y/O MALE PRESENTED TO ED C/O ALOC - PT WAS BIBA PER EMS PT WAS FOUND "UNRESPONSIVE " NAKED IN THE GARAGE. GCS 13. PT AWAKE AND ABLE TO FOLLOW COMMANDS. PT RESPONDING INAPPROPRIATELY TO QUESTIONS ASKED AT THIS TIME. PT MUMBLING AND EXCESSIVE SPEECH. PERRLA. RR EVEN AND UNLABORED. OBSERVED RASH ON PT NIPPLES AND LT LOWER CHEST. PT PLACED IN GOWN AND PLACED ON SMALL CRAFT OPERATOR, PULSE OX AND BP CUFF. ERMD MADE AWARE OF PT STATUS. PMH: POOR HISTORIAN AX: UNABLE TO OBTAIN
--- NOTE | 2020-06-24 20:30 | NUR ---
PT STATES HE DID HASH AND VICODINE TODAY. PT DENIES DRINKING ALCOHOL.
[2020-06-24] MEDS ORDERED: NACL 0.9% 1,000 ML IV ONE ×2 (20:35→23:35)
--- NOTE | 2020-06-24 20:41 | NUR ---
EMT AT BEDSIDE FOR EKG
[2020-06-24 21:07] LABS: BASOPHILS # (AUTO) 0.1 K/uL (0.00-0.22); BASOPHILS % (AUTO) 0.3 % (0.0-2.0); EOSINOPHILS # (AUTO) 0.2 K/uL (0-0.4); EOSINOPHILS % (AUTO) 0.8 % (0.0-4.0); HEMATOCRIT 46.7 % (36-52); HEMOGLOBIN 15.9 g/dL (12.0-18.0); LYMPHOCYTES # (AUTO) 2.2 K/uL (2.0-11.5); LYMPHOCYTES % (AUTO) 11.1 % (20.5-51.1); MEAN CORPUSCULAR HEMOGLOBIN 30 pg (27-31); MEAN CORPUSCULAR HGB CONC 34 g/dL (33-37); MEAN CORPUSCULAR VOLUME 87.1 fL (80-94); MONOCYTES # (AUTO) 0.5 K/uL (0.8-1.0); MONOCYTES % (AUTO) 2.7 % (1.7-9.3); NEUTROPHILS # (AUTO) 16.9 K/uL (1.8-7.7); NEUTROPHILS % (AUTO) 85.1 % (42.2-75.2); PLATELET COUNT (AUTO) 531 K/uL (140-450); RED BLOOD CELL COUNT(AUTO) 5.36 MIL/uL (4.20-6.10); RED CELL DISTRIBUTION WIDTH 13.7 % (11.6-13.7); WHITE BLOOD COUNT (AUTO) 19.8 K/uL (4.8-10.8)
--- NOTE | 2020-06-24 21:08 | NUR ---
PER ERMD ENDO - PERFORM STRAIGHT CATH FOR URINE AFTER PT HAS RECEIVED NS BOLUS.
[2020-06-24 21:22] LABS: ALBUMIN 4.2 g/dL (3.4-5.0); ANION GAP 18.5 (8-16); CARBON DIOXIDE 24.1 mmol/L (21-32); SALICYLATE 3.6 mg/dL (2.8-20.0); TOTAL BILIRUBIN 0.3 mg/dL (0.0-1.0)
--- NOTE | 2020-06-24 21:26 | NUR ---
PT TAKEN TO CT VIA ROMAIN
[2020-06-24 21:36] LABS: POTASSIUM 2.6 mmol/L (3.5-5.1)
--- NOTE | 2020-06-24 21:38 | NUR ---
PT RETUNRED FROM CT VIA ROMAIN
--- NOTE | 2020-06-24 21:47 | NUR ---
SPOKE W/ PT'S SISTER (SEVEN) PT HAS HX OF DEPRESSION , DRUG USE , BIPOLAR & SCHIZOPHRENIA . PER FAMILY HE IS NOT TAKING ANY MEDICATION FOR HIS MEDICAL CONDITIONS AT THIS TIME. SEVEN STATES THAT HER DAUGHTER FOUND THE PT NAKED "UNRESPONSIVE" IN THE GARAGE. ERMD MADE AWARE OF PT'S HX AT THIS TIME. SEVEN [phone]
[2020-06-24] MEDS ORDERED: POTASSIUM CHLORIDE 10 MEQ TABER PO ONE (22:05)
--- NOTE | 2020-06-24 22:19 | NUR ---
PT ENCOURAGED TO USE URINAL AT THIS TIME. PT STATES HE IS UNABLE TO PROVIDE URINE AT THIS TIME. PT'S NS BOLUS IS COMPLETE. PT INFORMED THAT WE NEED URINE SAMPLE. PT STATES HE WILL TRY AGAIN IN 5 MINS.
[2020-06-24] MEDS ORDERED: LORazepam 2 MG/ML VIAL IVP ONE (22:45)
--- NOTE | 2020-06-24 23:14 | NUR ---
PT TRYING URINAL ONE MORE TIME. PER PT HE AGREES IF UNABLE TO PROVIDE URINE IN NEXT 10 MINS WE CAN DO A STRAIGHT CATH TO OBTAIN URINE.
--- NOTE | 2020-06-24 23:33 | NUR ---
PER ERMD ENDO ORDER - ADMINISTER ANOTHER NS BOLUS AT THIS TIME.
[2020-06-25] MEDS ORDERED: LORazepam 2 MG/ML VIAL IVP ONE (00:20)
--- NOTE | 2020-06-25 00:28 | NUR ---
PT MOVED TO BED #6
[2020-06-25 01:04] LABS: APPEARANCE,URINE CLEAR (CLEAR); BILIRUBIN,URINE NEGATIVE (NEGATIVE); BLOOD, URINE TRACE-I (NEGATIVE); COLOR,URINE YELLOW (YELLOW); LEUKOCYTE ESTERASE ,URINE NEGATIVE (NEGATIVE); NITRITE, URINE NEGATIVE (NEGATIVE); UGLUCOSE 1+ (NEGATIVE)
[2020-06-25 01:09] LABS: RBC,URINE 0-5 /HPF (0-5); WBC,URINE 0-5 /HPF (0-5)
[2020-06-25 01:16] LABS: BARBITURATE, URINE NEGATIVE ng/ml (NEG <=200); BENZODIAZEPINE, URINE NEGATIVE ng/mL (NEG <=200); CANNABINOID, URINE NEGATIVE ng/mL (NEG <=50); COCAINE, URINE NEGATIVE ng/mL (NEG <=300); OPIATE, URINE POSITIVE ng/mL (NEG <=2000); PHENCYCLIDINE SCREEN,URINE NEGATIVE ng/mL (NEG <=25)
--- NOTE | 2020-06-25 01:30 | NUR ---
PT PULLED OUT LT A/C IV , CATH INTACT AND GAUZE PLACED AT IV SITE. BLEEDING CONTROLLED AT THIS TIME. PT DISORIENTED AND TRYING TO WALK OUT OF BED W/O PANTS. PT REORIENTED AND PLACED BACK INTO BED. BLANKET PLACED ONTOP OF PT FOR PRIVACY AND CARIDAC MONITOR AND PULSE OX PLACED ON PT AT THIS TIME.
[2020-06-25] MEDS ORDERED: ACETAMINOPHEN EXTRA STRENGTH 500 MG TAB PO ONE (02:05)
[2020-06-25] MEDS ORDERED: LACTATED RINGERS 1,000 ML IV ONE (02:05)
--- NOTE | 2020-06-25 02:06 | NUR ---
PT ACTING AND RESPONDING APPROPRIATELY AT THIS TIME . A/O X 4. PT STATES HE WANTS TO LEAVE THE EMERGENCY ROOM AGAINST MEDICAL ADVICE. PT HAS BEEN TOLD HIS HEART RATE IS ELEVATED AT 156 BPM AND SHOULD STAY. PT DECLINES STAYING AND STATES HE WANTS TO LEAVE RIGHT NOW. ELOY MADE AWARE.
--- NOTE | 2020-06-25 02:10 | NUR ---
PT SISTER SEVEN INFORMED THAT PT IS LEAVING AMA AND PT WILL BE READY FOR CATTLE TRADER IN 10 - 15 MINS.
--- NOTE | 2020-06-25 02:15 | NUR ---
PT HAD SHIRT UPON ARRIVAL AND NO PANTS. PT PROVIDED PANTS AND INFORMED FAMILY HAS BEEN CALLED TO PICK HIM UP.
--- NOTE | 2020-06-25 02:15 | NUR ---
PT WAS ENCOURAGED AND EDUCATED ON HIS CONDITION AND THAT HE SHOULD STAY AT THIS TIME. PT STATES HE WANTS TO LEAVE . PT VERBALIZED UNDERSTANDING OF ELEVATED HEART RATE. PT SIGNED AMA FORM AT THIS TIME.
[2020-06-25 02:24] VITALS: BP 160/80
--- NOTE | 2020-06-25 02:24 | NUR ---
Patient does not wish to proceed with medical care recommended by DR. VENTURA. Patient given information related to possible complications, up to and including , which could occur as a result of leaving hospital at this time. Patient verbalizes understanding of risks involved leaving against medical advice. Patient has signed AMA form.
== END 2020-06-25 02:24 | disposition left against medical advice (07) ==
LOC: MED 20:23
DX: R41.82 Altered mental status, unspecified (principal); R45.1 Restlessness and agitation; F19.10 Other psychoactive substance abuse, uncomplicated; F32.9 Major depressive disorder, single episode, unspecified; F20.9 Schizophrenia, unspecified
CPT/HCPCS: 36415; 70450; 71045; 80053; 80305; 81001; 82550; 84484; 85025; 93005; 96361; 96374; 96375; 99285; G0480; G0482; J2060; J7030

== ENCOUNTER 2020-08-07 17:12 | Emergency (ER) | payer OTHER ==
[~2020-08-07] VITALS: Ht 167.6 cm; Wt 59.0 kg
[2020-08-07 17:12] VITALS: BP 158/87
--- NOTE | 2020-08-07 17:12 | NUR ---
Pt taken to ER bed 8 via [facility].
[2020-08-07] MEDS ORDERED: NACL 0.9% 1,000 ML IV ONE (17:15)
[2020-08-07] MEDS ORDERED: LORazepam 2 MG/ML VIAL IVP ONE (17:15)
[2020-08-07] MEDS ORDERED: ASPIRIN 81 MG TAB.CHEW PO ONE (17:15)
--- NOTE | 2020-08-07 17:26 | NUR ---
radiology ct technologist at pt bedside.
--- NOTE | 2020-08-07 17:26 | NUR ---
technical operations manager at pt bedside.
--- NOTE | 2020-08-07 17:28 | NUR ---
35 Y/O MALE BIBA, POLICE FOUND PATIENT HUGGING A INFANTE, BYSTANDERS SAW PATIENT WITH A CRACK PIPE, PATIENT STATES HE WAS ONLY SMOKING MARIJUANA. GCS 15, AAOX4, AMBULATORY WITH STEADY GAIT. PATIENT IS TREMBLING, RESP EVEN AND UNLABORED. PATIENT IS ST ON BED SIDE MONITOR. DENIES ANY CHEST PAIN, PATIENT STATES HE DOES HAVE BACK PAIN 6/10. PUPILS ARE PINPOINT/REACTIVE. SKIN IS COOL/DRY. DENIES ANY SOB/COVID LIKE SYMPTOMS. NO PMH NKDA
--- NOTE | 2020-08-07 17:37 | NUR ---
EMT at pt bedside for EKG.
--- NOTE | 2020-08-07 17:37 | NUR ---
EKG PERFORMED AT BEDSIDE. EKG READS SINUS TACHYCARDIA @ 142
[2020-08-07] MEDS ORDERED: LIDOCAINE MPF 1% 5 ML ONE (17:59)
[2020-08-07 18:02] LABS: HEMATOCRIT 43.8 % (36-52); HEMOGLOBIN 14.9 g/dL (12.0-18.0); MEAN CORPUSCULAR HEMOGLOBIN 29 pg (27-31); MEAN CORPUSCULAR HGB CONC 34 g/dL (33-37); MEAN CORPUSCULAR VOLUME 86.2 fL (80-94); PLATELET COUNT (AUTO) 496 K/uL (140-450); RED BLOOD CELL COUNT(AUTO) 5.08 MIL/uL (4.20-6.10); RED CELL DISTRIBUTION WIDTH 13.6 % (11.6-13.7); WHITE BLOOD COUNT (AUTO) 16.6 K/uL (4.8-10.8)
[2020-08-07 18:13] LABS: LYMPHOCYTES % (MANUAL) 6 % (20-46); MONOCYTES % (MANUAL) 3 % (5-12)
[2020-08-07 18:20] LABS: ALBUMIN 3.8 g/dL (3.4-5.0); ANION GAP 16.3 (8-16); ASPARTATE AMINOTRANSFERASE 58 U/L (15-37); CHLORIDE 101 mmol/L (98-107); CREATININE 1.1 mg/dL (0.6-1.3); GFR ARICAN-AMERICAN 98 mL/min (>90); GLUCOSE 143 mg/dL (74-106); POTASSIUM 3.3 mmol/L (3.5-5.1); PROTHROMBIN TIME 10.5 secs (10.8-13.4); SALICYLATE 3.4 mg/dL (2.8-20.0); SODIUM SERUM 138 mmol/L (136-145); TOTAL BILIRUBIN 0.3 mg/dL (0.0-1.0); UREA NITROGEN, BLOOD 11 mg/dL (7-18)
--- NOTE | 2020-08-07 18:25 | NUR ---
PT UNABLE TO VOID AT THIS TIME. ELOY SMITH MADE AWARE
[2020-08-07] MEDS ORDERED: BACITRACIN OINT 500 UNITS/GM PKT TP ONE (18:28)
--- NOTE | 2020-08-07 19:10 | NUR ---
RECEIVED REPORT FROM TAYLOR PANG FOR CONTINUATION OF CARE.
[2020-08-07 19:17] LABS: ACETAMINOPHEN < 0.5 ug/ml (10-30)
--- NOTE | 2020-08-07 19:45 | NUR ---
35 YR OLD MALE AOX4 FOUND AWAKE ON BED IN SEMI-FOWLERS POSITION. PATIENT STATES NO PAIN, NO NAUSEA, AND NO VOMITING. PATIENT DENIES DISTRESS. PATIENT DENIES DRUG USE. TECHNICAL DELIVERY MANAGER WAS FOUND IN PATIENT LEFT POCKET. PATIENT TECHNICAL DELIVERY MANAGER WAS PROVIDED TO SECURITY TO HOLD FOR PATIENT. PATIENT LUNG SOUNDS CLEAR BILATERALLY WITH EQUAL RISE AND FALL WITH RESPIRATIONS. BED LOCKED IN LOWEST POSITION WITH 2 SIDE RAILS UP. CALL LIGHT WITHIN REACH. WILL CONTINUE TO MONITOR.
--- NOTE | 2020-08-07 21:53 | NUR ---
per Dr. Boyce - administer 2L bolus of NS at this time.
[2020-08-07] MEDS ORDERED: NACL 0.9% 2,000 ML IV ONE (21:55)
--- NOTE | 2020-08-07 22:07 | NUR ---
PATIENT FOUND AWAKE IN BED IN SEMI-FOWLERS POSITION. PATIENT STATES NO PAIN AND NO DISCOMFORT. PATIENT HAS UNLABORED BREATHING WITH EQUAL RISE AND FALL. BED LOCKED IN LOWEST POSITION WITH 2 SIDE RAILS UP AND CALL LIGHT WITHIN REACH. WILL CONTINUE TO MONITOR.
[2020-08-07] MEDS ORDERED: ACETAMINOPHEN EXTRA STRENGTH 500 MG TAB PO ONE (23:05)
--- NOTE | 2020-08-07 23:57 | NUR ---
PATIENT FOUND AWAKE SITTING ON PATIENT BED. PATIENT DENIES PAIN AND NAUSEA. PATIENT DENIES DISCOMFORT. PATIENT VITALS WERE MEASURED. BED LOCKED IN LOWEST POSITION WITH 2 SIDE RAILS UP AND CALL LIGHT WITHIN REACH. WILL CONTINUE TO MONITOR.
[2020-08-08 01:13] VITALS: BP 158/89
--- NOTE | 2020-08-08 01:13 | NUR ---
IV removed, catheter intact and site benign. Applied folded 4x4 gauze and tape to stop bleeding.
--- NOTE | 2020-08-08 01:13 | NUR ---
Patient discharged with v/s stable. Written and verbal after care instructions given and explained. Patient verbalized understanding. Ambulatory with steady gait. All questions addressed prior to discharge. Advised to follow up with PMD.
== END 2020-08-08 01:13 | disposition home or self-care (01) ==
LOC: MED 17:12
DX: F19.10 Other psychoactive substance abuse, uncomplicated (principal); F12.10 Cannabis abuse, uncomplicated; Z86.73 Personal history of transient ischemic attack (TIA), and cerebral infarction without residual deficits
CPT/HCPCS: 36415; 71045; 80053; 84484; 85025; 85610; 85730; 93005; 96361; 96374; 99285; G0480; G0482; J2001; J2060; J7030